=== PATIENT | male | born 1970 | race Caucasian/White ===

== ENCOUNTER 2023-05-29 01:19 | Emergency (ER) | payer BC ==
[~2023-05-29] VITALS: Ht 165.1 cm; Wt 75.0 kg
[2023-05-29 01:27] VITALS: TEMP 97.5
[2023-05-29 02:30] VITALS: BP 124/61; PULSE 80
== END 2023-05-29 02:26 | disposition home or self-care (01) ==
LOC: COL.ER 01:19
DX: S61.216A Laceration without foreign body of right little finger without damage to nail, initial encounter (principal); V80.018A Animal-rider injured by fall from or being thrown from other animal in noncollision accident, initial encounter; Y93.I9 Activity, other involving external motion